=== PATIENT | female | born 1955 | race Hispanic/Latino ===

== ENCOUNTER → 2023-05-05 | Outpatient (CLI) | payer OTHER, MEDICARE ==
[~2023-05-05] MED LIST: IOHEXOL 350 MG/ML 100ML INFUS..BTL IV ONE; METOPROLOL TARTRATE 1 MG/ML 5ML VIAL IV ONE
== END | disposition home or self-care (01) ==
LOC: RAH 13:27
PROVIDERS: ATTEND Student in an Organized Health Care Education/Training Program
DX: R07.9 Chest pain, unspecified (principal)
CPT/HCPCS: 75574; J3490 ×2; Q9967